=== PATIENT | female | born 1965 | race African-American/Black ===

== ENCOUNTER 2018-06-05 12:44 | Emergency (ER) | END 2018-06-05 14:52 | disposition home or self-care (01) ==

== ENCOUNTER 2018-10-25 12:32 | Emergency (ER) | payer OTHER ==
[~2018-10-25] VITALS: Ht 152.4 cm; Wt 95.4 kg
[~2018-10-25 12:32] MED LIST: ATEN-51 PO; HYDR25TA6 PO; LEVO50TA7 PO
[2018-10-25 12:39] VITALS: BP 158/82; PULSE 78; RESP 18; Ht 152.4 cm; Wt 95.4 kg
[2018-10-25] MEDS ORDERED: KETOROLAC 30 MG INJ IM STA (13:34)
[2018-10-25] MEDS ORDERED: ONDANSETRON (ODT) 4 MG TAB ODT STA (13:42)
--- NOTE | 2018-10-25 13:52 | ERD ---
ER Documentation Chief Complaint Chief Complaint BACK PAIN SINCE YESTERDAY HPI 53-year-old female with past medical history of chronic back pain presenting to the emergency department complaining of pain to the left low back intermittently for the past 1 day. She states she twisted while she was lying in bed which caused her pain. Her pain is moderate to severe and constant and worse with walking. She tried tramadol at home with only mild relief. She denies any loss of bowel or bladder function, fevers, chills, or other symptoms at this time. ROS All systems reviewed and are negative except as per history of present illness. Medications Home Meds Active Scripts Naproxen* (Naprosyn*) 500 Mg Tablet, 500 MG PO BID PRN for PAIN AND/OR INFLAMMATION, #30 TAB Prov:LAURENCE GRIJALVA PA-C 10/25/18 Cyclobenzaprine Hcl* (Cyclobenzaprine Hcl*) 10 Mg Tablet, 10 MG PO TID, #15 TAB Prov:LAURENCE GRIJALVA PA-C 10/25/18 Reported Medications Levothyroxine Sodium* (Levothyroxine Sodium*) 50 Mcg Tablet, 50 MCG PO DAILY 02/16/12 Atenolol* (Atenolol*) 25 Mg Tablet, 25 MG PO BID 02/16/12 Hydrochlorothiazide (Hydrochlorothiazide) 25 Mg Tablet, 25 MG PO DAILY 02/16/12 Allergies Allergies: Coded Allergies: No Known Allergy (Unverified , 10/25/18) PMhx/Soc History of Surgery: Yes (C SECTION) Anesthesia Reaction: No Hx Neurological Disorder: No Hx Respiratory Disorders: No Hx Cardiac Disorders: Yes (HTN) Hx Psychiatric Problems: No Hx Miscellaneous Medical Probl: Yes (ANEMIA) Hx Alcohol Use: Yes Hx Substance Use: No Hx Tobacco Use: No Smoking Status: Never smoker FmHx Family History: No diabetes Physical Exam Vitals Vital Signs Date Temp Pulse Resp B/P (MAP) Pulse Ox O2 O2 Flow FiO2 Time Delivery Rate 10/25/18 98.1 78 18 158/82 99 12:39 (107) Physical Exam Const: No acute distress Head: Atraumatic Eyes: Normal Conjunctiva ENT: Normal External Ears, Nose and Mouth. Neck: Full range of motion. No meningismus. Resp: Clear to auscultation bilaterally Cardio: Regular rate and rhythm, no murmurs Skin: No petechiae or rashes Back: No midline or flank tenderness. Tenderness palpation of the paraspinal region of the lumbar spine on the left. No step-offs. Ext: No cyanosis, or edema Neur: Awake and alert Psych: Normal Mood and Affect Results 24 hrs Current Medications Medications Dose Sig/Thalia Start Time Status Last (Trade) Ordered Route PRN Stop Time Admin Dose Reason Admin 10 mg ONCE ONCE 10/25/18 DC 10/25/18 Dexamethasone IM 14:00 13:52 (Decadron) 10/25/18 14:01 Ketorolac 30 mg ONCE STAT 10/25/18 DC 10/25/18 Tromethamine IM 13:34 13:52 (Toradol) 10/25/18 13:35 Ondansetron 4 mg ONCE STAT 10/25/18 DC 10/25/18 HCl (Zofran ODT 13:42 13:45 Odt) 10/25/18 13:43 Procedures/MDM 53-year-old female presented to the emergency department complaining of left- sided low back pain intermittently for the past 1 day. Patient was administered Toradol and Decadron in the department with good response. She was improved prior to discharge. Patient's musculoskeletal symptoms have stabilized while they have been evaluated in the department and are appropriate for outpatient work up. No evidence of cauda equina, cord compression, infiltrative, or infectious etiology. No evidence of life-threatening pathology at time of discharge. Pt/family in agreement with discharge plan/diagnosis. Pt/family advised to return immediately with any new or worsening symptoms. Follow-up with primary care physician within the next 1-2 days. Patient's blood pressure was elevated (>120/80) but appears stable without evidence of hypertension emergency or urgency. The patient is to follow-up and pursue outpatient monitoring and therapy with their primary care physician within 1 week and return immediately if they have any new, worsening, or concerning symptoms. Disclaimer: Inadvertent spelling and grammatical errors are likely due to EHR/dictation software use and do not reflect on the overall quality of patient care. Also, please note that the electronic time recorded on this note does not necessarily reflect the actual time of the patient encounter. Departure Diagnosis: Primary Impression: Back pain Back pain location: low back pain Chronicity: acute Back pain laterality: left Sciatica presence: without sciatica Qualified Codes: M54.5 - Low back pain Condition: Fair Patient Instructions: Back Pain (Acute Or Chronic) Additional Instructions: Follow up with your PCP within the next 1-3 days for a repeat evaluation. If you require a referral to a specialist, your Primary Care Provider may be able to provide this for you. In most patient cases, a referral is not required. If you have further questions regarding this matter, please ask your Primary Care Provider. Return the the emergency department immediately if symptoms worsen or change. If you have any questions regarding medications, ask your pharmacist or us before you leave. If any adverse reactions, occur while taking your medi cations, discontinue the treatment and return to the emergency department immediately. If any new or worsening symptoms, uncontrolled fevers, or other unexplained symptoms occur, return to the emergency department immediately. Take your medications as directed, and complete the entire course of treatment. LAURENCE GRIJALVA PA-C October 25, 2018 13:52
[2018-10-25] MEDS ORDERED: DEXAMETHASONE 10 MG/ML 1 ML INJ IM ONE (14:00)
[2018-10-25] MEDS ORDERED: CYCL10TA7 PO (14:36)
[2018-10-25] MEDS ORDERED: NAPR-985 PO (14:36)
== END 2018-10-25 14:43 | disposition home or self-care (01) ==
LOC: FTE 12:32
DX: M54.5 Low back pain (principal); I10 Essential (primary) hypertension
CPT/HCPCS: 96372; J1100; J1885; Z7502; Z7610